=== PATIENT | female | born 1955 | race Two or more races ===

== ENCOUNTER 2023-04-17 09:20 | Emergency (ER) | payer OTHER ==
[~2023-04-17] VITALS: Ht 170.2 cm; Wt 72.6 kg
[2023-04-17] MEDS ORDERED: SIMVASTATIN5 MG PO (09:50)
[2023-04-17] MEDS ORDERED: ZESTRIL2.5 MG PO (09:50)
[2023-04-17] MEDS ORDERED: CITALOPRAM10 MG/5 ML PO (09:51)
[2023-04-17] MEDS ORDERED: FLOVENT DISKUS50 MCG IH (09:51)
[2023-04-17 11:48] LABS: HEMOGLOBIN 15.8 g/dL (12.0-15.00); MEAN CORPUSCULAR HEMOGLOBIN 30.6 pg (27.00-32.0); MEAN CORPUSCULAR HGB CONC 34.3 g/dl (32.0-36.0); PLATELET COUNT 251 K/uL (150-450); RED BLOOD COUNT 5.17 M/uL (4.00-6.00); RED CELL DISTRIBUTION WIDTH 13.2 % (11.5-14.5)
[2023-04-17 12:08] LABS: ALBUMIN 4.1 gm/dL (3.4-5.0); BILIRUBIN TOTAL 0.84 mg/dL (0.3-1.2); CALCIUM 10.9 mg/dL (8.5-10.1); CREATININE SERUM 0.73 mg/dL (0.55-1.02); GFR 79.28; GLOBULINA 3.4 G/DL (2.4-3.5); POTASSIUM 4.28 mEq/L (3.5-5.1); TOTAL PROTEIN 7.5 gm/dL (6.4-8.2)
== END 2023-04-17 15:45 | disposition home or self-care (01) ==
LOC: ER 09:21
PROVIDERS: Emergency Medicine
DX: G45.9 Transient cerebral ischemic attack, unspecified (principal); H53.8 Other visual disturbances; Z88.0 Allergy status to penicillin; Z88.2 Allergy status to sulfonamides; I10 Essential (primary) hypertension